=== PATIENT | female | born 1980 | race Caucasian/White ===

== ENCOUNTER 2025-05-09 01:02 | Emergency (ER) | payer OTHER ==
[~2025-05-09] VITALS: Ht 162.6 cm; Wt 111.8 kg
[2025-05-09 01:43] VITALS: TEMP 97.9
[2025-05-09 02:50] VITALS: BP 124/100; PULSE 91; RESP 18; O2SAT 98
[2025-05-09 05:02] LABS: PLATELET COUNT (AUTO) 318 K/uL (150-450); RED BLOOD CELL COUNT(AUTO) 4.94 MIL/uL (4.00-5.20); RED CELL DISTRIBUTION WIDTH 13.9 % (11.5-14.5); WHITE BLOOD COUNT (AUTO) 10.0 K/uL (4.5-11.0)
[2025-05-09 05:04] LABS: CALCIUM, TOTAL 9.3 mg/dL (8.8-10.5); CREATININE 0.70 mg/dL (0.60-1.30); GLOMERULAR FILTR. RATE CALC > 60 mL/min (>60); GLUCOSE,RANDOM 92 mg/dL (70-110); SODIUM SERUM 141 mmol/L (136-145); UREA NITROGEN, BLOOD 11 mg/dL (7-18)
[2025-05-09] MEDS ORDERED: ALPR-705 PO ×2 (05:20→05:23)
== END 2025-05-09 05:46 | disposition home or self-care (01) ==
LOC: EMS 01:04
DX: F41.9 Anxiety disorder, unspecified (principal); G89.29 Other chronic pain; M54.50 Low back pain, unspecified; K21.9 Gastro-esophageal reflux disease without esophagitis; E03.9 Hypothyroidism, unspecified; F31.9 Bipolar disorder, unspecified; F17.210 Nicotine dependence, cigarettes, uncomplicated; Z88.2 Allergy status to sulfonamides; Z88.5 Allergy status to narcotic agent
CPT/HCPCS: 99284; 80048; 85025; 36415; G0480